=== PATIENT | male | born 2000 | race American Indian/Alaskan Native ===

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

== ENCOUNTER 2022-09-21 09:56 | Emergency (ER) | payer OTHER ==
[~2022-09-21] VITALS: Ht 175.3 cm; Wt 90.7 kg
[~2022-09-21 09:56] MED LIST: CLARITIN10 M2 PO
[2022-09-21] MEDS ORDERED: MELOXICAM15 MG PO (10:55)
[2022-09-21 11:07] VITALS: BP 126/78
== END 2022-09-21 11:07 | disposition home or self-care (01) ==
LOC: ED 09:56
DX: S93.402A Sprain of unspecified ligament of left ankle, initial encounter (principal); X50.3XXA Overexertion from repetitive movements, initial encounter; Z79.899 Other long term (current) drug therapy
CPT/HCPCS: 73610; 99283 25